=== PATIENT | male | born 1980 | race Caucasian/White ===

== ENCOUNTER 2020-07-16 08:52 | Day surgery (SDC) | payer OTHER ==
[~2020-07-16] VITALS: Ht 188 cm; Wt 100.9 kg
[~2020-07-16 08:52] MED LIST: LR 1,000 ML IV ONE; SERT-138 PO
[2020-07-16] MEDS ORDERED: BUPIVACAINE HCL 0.5% 10ML VIAL As Ordered ONE (10:40)
[2020-07-16] MEDS ORDERED: LIDOCAINE W/EPINEPHRINE 1% 20ML VIAL As Ordered ONE (10:40)
[2020-07-16] MEDS ORDERED: dexameTHASONE 4 MG/ML 1ML VIAL (J1100 PER 1MG) As Ordered ONE (10:58)
[2020-07-16] MEDS ORDERED: LIDOCAINE 2% 100MG/5ML SDV (FOR ANES.) As Ordered ONE (10:58)
[2020-07-16] MEDS ORDERED: propofoL 200 MG/20 ML VIAL As Ordered ONE (10:58)
[2020-07-16] MEDS ORDERED: MIDAZOLAM INJ 2MG/2ML VIAL (J2250 PER 1MG) As Ordered ONE (10:58)
[2020-07-16] MEDS ORDERED: ACETAMINOPHEN 1000MG 100ML IV BTL (OFIRMEV) (J0131 PER 10MG) As Ordered ONE (10:58)
[2020-07-16] MEDS ORDERED: METOCLOPRAMIDE INJ 10MG/2ML VIAL (J2765 PER 1) As Ordered ONE (10:58)
[2020-07-16] MEDS ORDERED: ONDANSETRON 4MG/2ML VIAL As Ordered ONE (10:58)
[2020-07-16] MEDS ORDERED: SUGAMMADEX SODIUM 500 MG/5 ML VIAL (BRIDION) As Ordered ONE (10:58)
[2020-07-16] MEDS ORDERED: ROCURONIUM BROMIDE 50 MG/5 ML VIAL As Ordered ONE (10:58)
[2020-07-16] MEDS ORDERED: fentaNYL 100 MCG/2 ML INJECTION (J3010) As Ordered ONE ×2 (10:58→11:24)
[2020-07-16] MEDS ORDERED: ONDANSETRON 4MG/2ML VIAL IV PRN (12:00)
[2020-07-16] MEDS ORDERED: LR 1,000 ML IV SCH ×2 (12:00)
[2020-07-16] MEDS ORDERED: oxyCODONE 5MG TAB PO PRN (12:00)
[2020-07-16] MEDS ORDERED: fentaNYL 100 MCG/2 ML INJECTION (J3010) IV PRN (12:00)
[2020-07-16] MEDS ORDERED: NORCO, ANEXSIA 5/325MG TABLET (HYDROcodone/ACETAMINOPHEN) PO PRN (12:00)
[2020-07-16] MEDS ORDERED: HYDROMORPHONE HCL 0.5 MG/ 0.5 ML SYRINGE (J1170 PER 1) IV PRN (12:00)
[2020-07-16 13:25] VITALS: BP 128/67
--- NOTE | 2020-07-17 10:59 | RO ---
OPERATIVE NOTE DATE OF OPERATION: 07/16/2020 PREOPERATIVE DIAGNOSIS: Chronic tonsillitis. POSTOPERATIVE DIAGNOSIS: Chronic tonsillitis. PROCEDURE: Tonsillectomy. Under general anesthesia with the patient intubated, Acharya Wolfgang mouth gag was inserted. The tonsillar area was infiltrated with Lidocaine and 0.5% Marcaine. Using a cautery, I dissected the tonsil free from its bed on both sides. Tonsil was removed. I cauterized areas that had some bleeding. The patient tolerated the procedure well. Less than 1 mL estimated blood loss. The patient extubated and transferred to the recovery room in excellent condition.
== END 2020-07-16 13:25 | disposition home or self-care (01) ==
LOC: M SDC 08:52
PROVIDERS: ATTEND Otolaryngology
DX: J35.01 Chronic tonsillitis (principal); G47.33 Obstructive sleep apnea (adult) (pediatric); Z79.899 Other long term (current) drug therapy
CPT/HCPCS: 42826; 88302; J0131; J1100; J2250; J2405; J2765; J3010

== ENCOUNTER → 2021-02-20 | Outpatient (REF) | payer OTHER ==
[~2021-02-20] MED LIST changes: -LR 1,000 ML IV ONE
--- NOTE | 2021-02-20 19:21 | ECHO ---
ECHOCARDIOGRAM DATE OF PROCEDURE: 02/20/2021 Age: 40 Gender: Male Height: 183 cm Weight: 102 kg REFERRING PHYSICIAN: Sammy Miramontes M.D. INDICATION: Palpitations. MEASUREMENTS: IVS 0.9 cm LV 5.0 cm LVPW 0.9 cm LA 4.0 cm Aorta 3.8 cm IVC 2.0 cm Mitral E wave velocity 85 cm/s Mitral A wave 66 cm/s E prime septal 7.6 cm/s E prime lateral 13.2 cm/s FINDINGS: This study is of acceptable technical quality. The patient is in sinus rhythm. Left ventricle has normal size and normal systolic function with estimated EF around 60% to 65%. Right ventricle has also normal size and systolic function. Left atrium is borderline enlarged. The right atrium appears normal. All four cardiac valves were well seen and appear structurally normal. No pericardial effusion is noted. Inferior vena cava is in the upper limits of normal size, but has almost complete collapse with inspiration indicative of probably normal central venous pressure. The aortic root is borderline dilated 3.8 cm. Aortic arch appears normal. Abdominal aorta was not seen. Doppler interrogation reveals competent aortic valve. There is trace mitral and tricuspid insufficiency. Calculated pulmonary artery pressure is within normal limits. Pulmonic valve is functionally competent. Mitral inflow pattern and tissue Doppler imaging of mitral annulus revealed likely normal diastolic function. CONCLUSIONS: 1. Study is of acceptable technical quality, underlying sinus rhythm. 2. Normal LV size with normal LV systolic and diastolic function. 3. No significant valvular disease. 4. Likely normal central venous pressure and normal pulmonary artery pressure. 5. Borderline dilated aortic root (3.8 cm).
== END ==
LOC: M CARPUL 12:54 → EDSTATUS 13:30
PROVIDERS: ATTEND Internal Medicine
DX: R00.2 Palpitations (principal)

== ENCOUNTER 2021-03-29 11:56 | Emergency (ER) | payer OTHER ==
[~2021-03-29] VITALS: Ht 182.9 cm; Wt 99.6 kg
[2021-03-29 12:46] LABS: BASO % 0.7 % (0.0-1.0); EOS # 0.1 10^3/uL (0.0-0.5); HEMATOCRIT 43.2 % (42.0-52.0); HEMOGLOBIN 14.5 g/dl (13.5-17.5); LYMPH # 1.2 10^3/uL (1.5-5.0); LYMPH % 30.4 % (24.0-44.0); MEAN CORPUSCULAR HEMOGLOBIN 31.3 pg (27.0-33.0); MEAN CORPUSCULAR HGB CONC 33.6 g/dl (32.0-36.5); MEAN CORPUSCULAR VOLUME 93.3 fl (80.0-96.0); MONO # 0.4 10^3/uL (0.0-0.8); MONO % 9.5 % (2.0-8.0); NEUTROPHILS # 2.3 10^3/uL (1.5-8.5); NEUTROPHILS % 56.2 % (36.0-66.0); PLATELET COUNT, AUTOMATED 214 10^3/uL (150-450); RED BLOOD COUNT 4.63 10^6/uL (4.30-6.10)
[2021-03-29] MEDS ORDERED: NS 1,000 ML IV ONE (12:50)
[2021-03-29] MEDS ORDERED: MECLIZINE 25 MG TABLET PO ONE (12:50)
--- NOTE | 2021-03-29 13:11 | ECGEPIP ---
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
[2021-03-29] MEDS ORDERED: ISOVUE-370 76% 100ML VIAL As Ordered ONE (15:13)
--- NOTE | 2021-03-29 17:37 | REP ---
INDICATION: ataxia. COMPARISON: None. TECHNIQUE: Initially scans were obtained without contrast administration. Follow by contrast administration and scans of the neck and head. FINDINGS: No displacement of midline structures. Third and lateral ventricles show normal size and attenuation. Cerebral hemispheres show normal configuration and attenuation. No evidence of hemorrhage, mass effect or edema. Brainstem and posterior fossa are unremarkable. CTA neck: The great vessels show normal origins from the arch. The arch is unremarkable. Right carotid artery: There is no abnormality in the right common, internal external carotid arteries. Left carotid artery: There is no abnormality in the left common, internal or external carotid arteries. Vertebral arteries: Vertebral artery show normal caliber and configuration. Intracranial CTA: The intracranial portions of the internal carotid artery show normal caliber and position. The anterior and middle cerebral arteries and their branches show normal caliber and configuration. The basilar artery is patent. Both posterior cerebral arteries and posterior communicating artery are patent and unremarkable. There is no thrombus. No evidence of intracranial aneurysm. IMPRESSION: Negative brain CT. Negative CTA of the neck Negative intracranial CTA <Electronically signed by Ck Gaming > 03/29/21 [id number]
[2021-03-29] MEDS ORDERED: MECL1TAB31 PO (17:54)
[2021-03-29 18:09] VITALS: BP 118/82
== END 2021-03-29 18:19 | disposition home or self-care (01) ==
LOC: M ED 11:56
DX: H81.10 Benign paroxysmal vertigo, unspecified ear (principal); H81.399 Other peripheral vertigo, unspecified ear; G47.33 Obstructive sleep apnea (adult) (pediatric); Z79.899 Other long term (current) drug therapy
CPT/HCPCS: 70450; 70496; 70498; 80047; 85025; 93005; 96360; 96361; 99285; Q9967

== ENCOUNTER → 2024-07-31 | Outpatient (REF) ==
[~2024-07-31] MED LIST changes: +MECL-209 PO
== END ==
LOC: M PLAIMG 09:15
PROVIDERS: ATTEND Internal Medicine
DX: Z01.89 Encounter for other specified special examinations (principal)